=== PATIENT | male | born 1965 | race Caucasian/White ===

== ENCOUNTER 2019-06-01 05:57 | Day surgery (SDC) | payer OTHER ==
[2019-06-01] MEDS ORDERED: EPHEDRINE SULFATE 50 MG/ML ML IV ONE (05:58)
[2019-06-01] MEDS ORDERED: PROPOFOL 10 MG/ML VIAL IV ONE (05:58)
[2019-06-01] MEDS ORDERED: FENTANYL PF 100MCG/2ML VIAL IV ONE (05:58)
[2019-06-01] MEDS ORDERED: ONDANSETRON HCL IV 4 MG/2 ML VIAL IVP ONE (05:58)
[2019-06-01] MEDS ORDERED: MIDAZOLAM HCL 2MG/2ML VIAL IV ONE (05:58)
[2019-06-01] MEDS ORDERED: LIDOCAINE 2% MDV (20MG/ML) 20ML VIAL IV ONE (05:58)
[2019-06-01] MEDS ORDERED: DESFLURANE 240 ML BTL INH ONE (05:58)
[2019-06-01] MEDS ORDERED: DEXAMETHASONE 4 MG/ML 1ML VIAL IVP ONE ×2 (05:58)
[2019-06-01] MEDS ORDERED: KETOROLAC 30 MG/ML VIAL IVP ONE (05:58)
[2019-06-01] MEDS ORDERED: BUPIVACAINE 0.25% MPF 30ML VIAL IVP ONE (05:58)
[2019-06-01] MEDS ORDERED: BUPIVACAINE LIPOSOME/PF 133MG/10ML VIAL IV ONE (05:58)
[2019-06-01] MEDS ORDERED: ACETAMINOPHEN 1,000 MG/100 ML BTL IVPB ONE (06:00)
[2019-06-01] MEDS ORDERED: RINGERS SOLUTION,LACTATED 1,000 ML IV ONE (06:20)
[2019-06-01] MEDS ORDERED: EPINEPHRINE 1 MG/ML AMPUL IJ ONE ×2 (08:20)
[2019-06-01] MEDS ORDERED: FENTANYL PF 100MCG/2ML VIAL IVP ONE (10:00)
--- NOTE | 2019-06-01 10:29 | Operative Note ---
DATE OF SURGERY: 06/01/2019 SURGEON: Nahid Carter D.O. REFERRING PHYSICIAN: Marck Dsouza D.O. PREOPERATIVE DIAGNOSIS: 1. TEAR OF THE RIGHT ROTATOR CUFF. 2. IMPINGEMENT SYNDROME RIGHT SHOULDER. 3. 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 POSTOPERATIVE DIAGNOSIS: 1. TEAR OF THE RIGHT ROTATOR CUFF. 2. IMPINGEMENT SYNDROME RIGHT SHOULDER. 3. 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 OPERATION: 1. ARTHROSCOPIC REPAIR OF THE RIGHT ROTATOR CUFF. 2. ARTHROSCOPIC SUBACROMIAL DECOMPRESSION AND ACROMIOPLASTY OF THE RIGHT SHOULDER. 3. ARTHROSCOPIC REPAIR OF THE GLENOID LABRUM RIGHT SHOULDER. DESCRIPTION: This 54-year-old male was taken to the Operating Room and placed in the supine position on the operating room table. General anesthesia was induced after interscalene block had been given. The patient was placed in the beach chair position and secured with all bony prominences well padded and head well secured. The right shoulder was then prepped with Hibiclens and draped in the usual sterile fashion. A posterior portal was established in the glenohumeral joint and initial evaluation of the joint demonstrated disruption of the anterior and superior glenoid labrum with degenerative type tearing as well as tearing under the biceps anchor and flap tears superiorly were also present. An anterior portal was established and this was probed and found to be disrupted from the glenoid at the biceps anchor and about 1 cm posteriorly as well as anteriorly. Utilizing the rotating shaver we debrided the unstable portions of the labrum and the shaver was used to debride the superior and anterior aspect of the bony glenoid. A rasp was also used to get to healthy appearing bone. We were then able to pass two sutures, one posterior to the biceps and one anterior to the biceps securing the labrum in excellent position. It was reprobed after these two anchors had been placed and excellent stability of the labrum was then noted. We then also noted a disruption of the rotator cuff, the supraspinatus was seen to be disrupted anteriorly to the level of the biceps, but the biceps was intact and appeared to be normal. We then placed the scope in the subacromial space and the lateral portal was established and the subacromial space was thoroughly debrided and acromioplasty was performed. There was extensive bursitis and this was debrided with the rotating shaver. We also debrided the anatomic footprint on the tuberosity and some over the top of the tuberosity to have good bony contact for the anticipated anchor placement. This was basically a U-shaped tear, but was a multiplanar tear and after debridement we felt we had reasonably good tissue to repair and subsequently we placed two swivel lock suture anchors, one with fiber tape and one with tiger tape and one at the anterior margin of the tear and one at the posterior margin of the tear. These sutures were then passed through the rotator cuff and because of the instability and marginal tissue in some locations we also used a horizontal mattress suture placed in between the two anchors for additional support, therefore, we placed a single limb of each one of these sutures through a third swivel lock anchor which was placed inferior to the anterior anchor and the sutures were drawn tight and the anchor impaled the remaining three tails of suture were placed through a fourth swivel lock anchor all being 4.75 mm and this was placed inferior to the posterior anchor. We then johan these sutures down tightly to bring the rotator cuff back down to the anatomic footprint and the anchor was impaled. The repair was seen to be satisfactory and the sutures were cut. The wound was irrigated and the scope and instruments were removed, the out sides of the puncture sites irrigated and the four arthroscopic portals were closed with 4-0 nylon suture. Sterile dressings were applied with an UltraSling and the patient was taken to the Recovery Room in satisfactory condition. GROSS PATHOLOGY: This patient demonstrated disruption of the glenoid labrum at the base of the biceps tendon and this was debrided and repaired in the manner described above. In addition, repair of the rotator cuff was accomplished as stated above. In some areas the patient's rotator cuff quality was suspect, posteriorly though the cuff tissue appeared to be healthy. JOB NUMBER: [id number] MTDD
[2019-06-01] MEDS ORDERED: HYDROCODONE/APAP 5/325MG TABLET PO ONE (10:33)
== END 2019-06-01 10:58 | disposition home or self-care (01) ==
LOC: SUR 05:57
PROVIDERS: ATTEND Orthopaedic Surgery
DX: M75.101 Unspecified rotator cuff tear or rupture of right shoulder, not specified as traumatic (principal); S43.431A Superior glenoid labrum lesion of right shoulder, initial encounter; M75.41 Impingement syndrome of right shoulder
CPT/HCPCS: 76942; C9290; J0171; J1885; J2405; J7120